=== PATIENT | male | born 1960 | race African-American/Black ===

== ENCOUNTER 2016-06-02 13:11 | Outpatient (CLI) | payer MEDICARE, MEDICAID ==
[2015-04-06 18:59] VITALS: BP 152/73
[2016-06-02 14:42] LABS: APPEARANCE,URINE Clear (CLEAR); COLOR,URINE Yellow (YELLOW); OCCULT BLOOD,URINE Trace-intact (NEGATIVE); PH URINE 5.5 (5.0 - 8.0)
[2016-06-02 14:48] LABS: BASOPHILS % 0.1 (0.0-1.5); EOSINOPHILS % 0.4 % (0.0-6.8); LYMPHOCYTES # 0.9 # k/uL (0.6-4.0); MEAN CORPUSCULAR HEMOGLOBIN 29.7 pg (28.0-34.0); MONOCYTES # 0.5 # k/uL (0.0-0.9); MONOCYTES % 7.5 % (0.0-11.0); NEUTROPHILS # 4.8 # k/uL (1.4-7.7)
[2016-06-02 14:57] LABS: AMORPHOUS SEDIMENT,UR FEW (NEGATIVE)
[2016-06-02 15:12] LABS: eGFR (African) 32; eGFR (Non-African) 26
[2016-06-02 23:01] LABS: MAGNESIUM 1.8 mg/dL (1.6-2.6)
[2016-06-03 03:32] LABS: PROTEIN mg/dL 200 mg/dL
[2016-06-07 02:07] LABS: BK copy/mL <390 cpy/mL
== END 2016-06-02 13:12 ==
LOC: NEPHRO 13:11
PROVIDERS: ATTEND Internal Medicine Nephrology
DX: E11.22 Type 2 diabetes mellitus with diabetic chronic kidney disease (principal); N18.9 Chronic kidney disease, unspecified; Z94.0 Kidney transplant status
CPT/HCPCS: 36415; 80053; 81002; 82570; 83036; 83735; 84100; 84156; 85025; 87497; 87799; G0463

== ENCOUNTER 2016-10-15 08:14 | Outpatient (CLI) | payer MEDICARE ==
[2015-04-06 18:59] VITALS: BP 152/73
[2016-10-15 08:56] LABS: BASOPHILS % 0.2 (0.0-1.5); EOSINOPHILS % 0.4 % (0.0-6.8); MEAN CORPUSCULAR HEMOGLOBIN 31.9 pg (28.0-34.0); MONOCYTES % 4.9 % (0.0-11.0); NEUTROPHILS # 4.8 # k/uL (1.4-7.7)
[2016-10-15 09:18] LABS: eGFR (African) 38; eGFR (Non-African) 31
== END 2016-10-15 08:15 ==
LOC: LAB 08:14
PROVIDERS: ATTEND Internal Medicine Nephrology
DX: N18.9 Chronic kidney disease, unspecified (principal); Z94.0 Kidney transplant status
CPT/HCPCS: 36415; 80053; 80197; 83036; 83735; 83970; 84100; 85025

== ENCOUNTER 2016-10-20 13:05 | Outpatient (CLI) | payer MEDICARE ==
[2015-04-06 18:59] VITALS: BP 152/73
== END 2016-10-20 13:06 ==
LOC: NEPHRO 13:05
PROVIDERS: ATTEND Internal Medicine Nephrology
DX: Z94.0 Kidney transplant status (principal); E11.9 Type 2 diabetes mellitus without complications; I10 Essential (primary) hypertension; N18.3 Chronic kidney disease, stage 3 (moderate)
CPT/HCPCS: G0463

== ENCOUNTER 2017-04-06 13:36 | Outpatient (CLI) | payer MEDICARE, OTHER ==
[2015-04-06 18:59] VITALS: BP 152/73
== END 2017-04-06 13:38 ==
LOC: NEPHRO 13:36
PROVIDERS: ATTEND Internal Medicine Nephrology
DX: Z94.0 Kidney transplant status (principal); E11.9 Type 2 diabetes mellitus without complications; I10 Essential (primary) hypertension
CPT/HCPCS: G0463

== ENCOUNTER 2017-04-06 14:17 | Outpatient (CLI) | payer MEDICARE, OTHER ==
[2015-04-06 18:59] VITALS: BP 152/73
[2017-04-06 15:21] LABS: BASOPHILS % 0.1 (0.0-1.5); EOSINOPHILS % 0.3 % (0.0-6.8); MEAN CORPUSCULAR HEMOGLOBIN 31.6 pg (28.0-34.0); MEAN CORPUSCULAR VOLUME 92.4 fl (80.0-100.0); MONOCYTES % 7.1 % (0.0-11.0); NEUTROPHILS # 5.6 # k/uL (1.4-7.7)
[2017-04-06 15:22] LABS: APPEARANCE,URINE Clear (CLEAR); COLOR,URINE Yellow (YELLOW); OCCULT BLOOD,URINE Trace-intact (NEGATIVE); UROBILINOGEN URINE 0.2 Eu (0.2-1.0)
[2017-04-06 15:51] LABS: eGFR (African) 42; eGFR (Non-African) 35
[2017-04-06 16:09] LABS: AMORPHOUS SEDIMENT,UR FEW (NEGATIVE)
[2017-04-06 23:51] LABS: MAGNESIUM 1.8 mg/dL (1.6-2.6)
[2017-04-07 01:41] LABS: PROTEIN mg/dL 91 mg/dL
[2017-04-09 13:53] LABS: BK copy/mL <390 cpy/mL
== END 2017-04-06 14:18 ==
LOC: LAB 14:17
PROVIDERS: ATTEND Internal Medicine Nephrology
DX: Z94.0 Kidney transplant status (principal); E11.9 Type 2 diabetes mellitus without complications; I10 Essential (primary) hypertension
CPT/HCPCS: 36415; 80053; 81002; 82570; 83036; 83735; 84100; 84156; 85025; 87799

== ENCOUNTER 2017-08-28 11:25 | Emergency (ER) | payer MEDICARE ==
[2017-08-28] MEDS ORDERED: CloNIDine HCL 0.1 MG TABLET PO ONE ×2 (11:43→11:44)
--- NOTE | 2017-08-28 12:06 | ED Physician Documentation ---
General Adult - HISTORIAN Historian: patient - HPI Stated Complaint: High Blood Pressure Chief Complaint: General Adult Additional Information: Says his BP this morning was 179/101, so he came to the ER. Out of clonidine for several days, but stays it is ready for pickup at [facility]. [facility] says they don't have script and never have. Medical records are not helpful in this regard. Says he feels fine. - ROS CONST: no problems - PAST HX Past History: hypertension, other (CVA) Allergies/Adverse Reactions: Allergies Allergy/AdvReac Type Severity Reaction Status Date / Time No Known Drug Allergies Allergy Verified 04/06/15 17:42 Home Medications: Ambulatory Orders Medication Instructions Recorded Hydrocodone/Acetaminophen 1 each PO Q4 PRN u2 04/11/15 [Hydrocodon-Acetaminophen 5-325] Carvedilol [Coreg] 25 mg PO QID 08/28/17 CloNIDine HCL [Catapress] 0.1 mg PO BID #60 tablet 08/28/17 CloNIDine HCL [Catapress] 0.1 mg PO TID 08/28/17 Gabapentin [Gabapentin] 100 mg PO TID 08/28/17 Insulin Aspart [Novolog Flexpen] 4 units SQ TID 08/28/17 Insulin Glargine,Hum.rec.anlog 6 units SQ HS 08/28/17 [Lantus Solostar] Latanoprost [Xalatan] 1 drop OP 08/28/17 Omeprazole [Omeprazole] 20 mg PO BID 08/28/17 Pen Needle, Diabetic [Ultra-Fine 08/28/17 Short Pen Needle] Simvastatin [Simvastatin] 20 mg PO HS 08/28/17 amLODIPine BESYLATE [Norvasc] 10 mg PO 0900 08/28/17 tiZANidine HCL [Zanaflex] 4 mg PO Q6H PRN 08/28/17 - SOCIAL HX Smoking History: non-smoker - FAMILY HX Family History: No - VITAL SIGNS Vital Signs: Vital Signs Temp Pulse Resp BP Pulse Ox 97.9 F 86 18 173/88 99 08/28/17 11:25 08/28/17 11:25 08/28/17 11:25 08/28/17 11:25 08/28/17 11:25 - REVIEWED ASSESSMENTS Nursing Assessment Reviewed: Yes Vitals Reviewed: Yes ED Results Lab/Radiology - Orders Orders: ED Orders Category Date Time Status CloNIDine HCL [Catapress] Med 08/28/17 11:43 Discontinued 0.1 mg PO .STK-MED ONE CloNIDine HCL [Catapress] Med 08/28/17 11:44 Discontinued 0.1 mg PO NOW ONE General Adult Physical Exam - PHYSICAL EXAM GENERAL APPEARANCE: in WC EENT: eye inspection normal, other (L mouth lower, talks from right side of mouth, poor salivary control on lefy) NECK: normal inspection RESPIRATORY: no resp distress, breath sounds normal CVS: reg rate & rhythm, heart sounds normal BACK: normal inspection SKIN: warm/dry, normal color EXTREMITIES: no evidence of injury NEURO: cognition normal Discharge Clincal Impression: Hypertension Qualifiers: Hypertension type: unspecified Qualified Code(s): I10 - Essential (primary) hypertension Prescriptions: CloNIDine HCL [Catapress] 0.1 mg PO BID #60 tablet Referrals: Paulie Quintana MD [Primary Care Provider] - 2 Days Condition: Good Disposition: 01 HOME, SELF-CARE Decision to Admit: NO Decision Time: 12:10
[2017-08-28 12:32] VITALS: BP 166/67
== END 2017-08-28 12:30 | disposition home or self-care (01) ==
LOC: ED 11:25
DX: I10 Essential (primary) hypertension (principal); Z76.0 Encounter for issue of repeat prescription
CPT/HCPCS: 99283

== ENCOUNTER 2017-09-09 13:40 | Outpatient (CLI) | payer MEDICARE ==
[2017-09-09 13:45] LABS: eGFR (African) 44; eGFR (Non-African) 37
== END 2017-09-09 13:42 ==
LOC: LABRHC 13:40
PROVIDERS: ATTEND Family Medicine
DX: E11.9 Type 2 diabetes mellitus without complications (principal); I10 Essential (primary) hypertension
CPT/HCPCS: 80053

== ENCOUNTER 2017-10-05 14:05 | Outpatient (CLI) | payer MEDICARE, OTHER ==
[2017-10-05 14:30] LABS: BASOPHILS % 0.2 (0.0-1.5); EOSINOPHILS % 0.3 % (0.0-6.8); MEAN CORPUSCULAR HEMOGLOBIN 31.8 pg (28.0-34.0); MEAN CORPUSCULAR VOLUME 94.7 fl (80.0-100.0); MONOCYTES % 6.5 % (0.0-11.0); NEUTROPHILS # 4.7 # k/uL (1.4-7.7)
[2017-10-05 14:38] LABS: APPEARANCE,URINE CLEAR (CLEAR); COLOR,URINE YELLOW (YELLOW); OCCULT BLOOD,URINE TRACE-LYSED (NEGATIVE); UROBILINOGEN URINE 0.2 Eu (0.2-1.0)
[2017-10-05 14:50] LABS: eGFR (African) 42; eGFR (Non-African) 35
[2017-10-05 22:01] LABS: PROTEIN mg/dL 59 mg/dL
[2017-10-09 22:41] LABS: BK copy/mL <390 cpy/mL
== END 2017-10-05 15:07 ==
LOC: LAB 14:05
PROVIDERS: ATTEND Internal Medicine Nephrology
DX: Z94.0 Kidney transplant status (principal); E11.9 Type 2 diabetes mellitus without complications; I10 Essential (primary) hypertension
CPT/HCPCS: 36415; 80053; 80197; 81002; 82570; 83036; 83735; 83970; 84100; 84156; 84443; 85025; 87497; 87799; G0463

== ENCOUNTER 2018-01-05 09:22 | Outpatient (CLI) | payer MEDICARE, OTHER ==
[2018-01-05 10:34] LABS: eGFR (Non-African) 39
== END 2018-01-05 09:24 ==
LOC: LAB 09:22
PROVIDERS: ATTEND Family Medicine
DX: E11.9 Type 2 diabetes mellitus without complications (principal); Z23 Encounter for immunization
CPT/HCPCS: 36415; 80053; 80061; 83036

== ENCOUNTER 2018-04-06 07:52 | Outpatient (CLI) | payer MEDICARE, OTHER ==
[2018-04-06 08:38] LABS: eGFR (Non-African) 35
[2018-04-06 08:44] LABS: MEAN CORPUSCULAR HEMOGLOBIN 30.7 pg (28.0-34.0)
[2018-04-06 08:45] LABS: BASOPHILS % 0.2 (0.0-1.5); EOSINOPHILS % 1.2 % (0.0-6.8); MONOCYTES % 5.6 % (0.0-11.0); MONOCYTES % 6 % (0-11); NEUTROPHILS # 6.1 # k/uL (1.4-7.7); SEGMENTED NEUTROPHILS % 81 % (39-79)
[2018-04-06 08:56] LABS: APPEARANCE,URINE CLEAR (CLEAR); COLOR,URINE YELLOW (YELLOW); OCCULT BLOOD,URINE TRACE-LYSED (NEGATIVE); UROBILINOGEN URINE 0.2 Eu (0.2-1.0)
[2018-04-07 10:27] LABS: PROTEIN mg/dL 52 mg/dL
== END 2018-04-06 07:53 ==
LOC: LAB 07:52
PROVIDERS: ATTEND Internal Medicine Nephrology
DX: E11.9 Type 2 diabetes mellitus without complications (principal); I10 Essential (primary) hypertension
CPT/HCPCS: 36415; 80053; 81002; 82570; 83036; 83735; 84100; 84156; 85025

== ENCOUNTER 2018-04-12 13:09 | Outpatient (CLI) | payer MEDICARE, OTHER | END 2018-04-12 13:11 | LOC: NEPHRO 13:09 | PROVIDERS: ATTEND Internal Medicine Nephrology | DX: Z94.0 Kidney transplant status (principal); N25.81 Secondary hyperparathyroidism of renal origin; D63.8 Anemia in other chronic diseases classified elsewhere; Z79.899 Other long term (current) drug therapy; Z51.81 Encounter for therapeutic drug level monitoring | CPT/HCPCS: G0463 ==

== ENCOUNTER 2018-05-24 08:49 | Outpatient (CLI) | payer MEDICARE, OTHER ==
--- NOTE | 2018-05-24 09:32 | Diagnostic Imaging Report ---
JADA MEEHAN [facility] [address] [facility].[address] [address] Report Submission Date: May 24, 2018 9:16:09 AM BOARD OF DIRECTORS Patient Study Name: JDAA GAINES Date: May 24, 2018 8:59:42 AM BOARD OF DIRECTORS Modality Type: DX Gender: M Description: WRIST 3 VIEWS OR MORE : 58 Institution: [facility] Physician: JADA MEEHAN Examination: Plain film left wrist History: LATERAL LT WRIST PAIN WHEN PULLING HIMSELF UP. NO PREVIOUS INJURY OR SURGERY ON WRIST. Comparison exams: None available Findings: 3 views of the left wrist demonstrate normal cortical margins. No fracture. No dislocation. Mild subchondral cysts. Vascular calcifications. Impression: No acute appearing osseous abnormality. If suspect soft tissue abnormality/injury consider obtaining MRI to further evaluate. Electronically signed on May 24, 2018 9:16:09 AM BOARD OF DIRECTORS by: Mumtaz GODOY
== END 2018-05-24 08:50 ==
LOC: RAD 08:49
PROVIDERS: ATTEND Family Medicine
DX: M25.532 Pain in left wrist (principal)
CPT/HCPCS: 73110

== ENCOUNTER 2018-06-29 02:30 | Emergency (ER) | payer MEDICARE, OTHER ==
--- NOTE | 2018-06-29 02:46 | ED Physician Documentation ---
General Adult - HISTORIAN Historian: patient - HPI Stated Complaint: urinary frequency x 2 days Chief Complaint: Male Urogenital Problems Onset: hours (8) Timing: still present Severity: moderate Further Comments: yes (He states early this am she started noticing he was frequently urinating and there was an episode he felt "it just came out before I could go" He denies any nasuea. No pain. No fever.) Last known Well Code/Unknown Code: Unknown - ROS CONST: no problems GI/: problems urinating. denies: vomiting, nausea, diarrhea MS/SKIN/LYMPH: none NEURO/PSYCH: denies: headache - PAST HX Past History: hypertension Other History: diabetes Type 2 Immunizations: UTD Allergies/Adverse Reactions: Allergies Allergy/AdvReac Type Severity Reaction Status Date / Time No Known Drug Allergies Allergy Verified 06/29/18 02:51 Home Medications: Ambulatory Orders Medication Instructions Recorded Hydrocodone/Acetaminophen 1 each PO Q4 PRN u2 04/11/15 [Hydrocodon-Acetaminophen 5-325] Carvedilol [Coreg] 25 mg PO QID 08/28/17 CloNIDine HCL [Catapress] 0.1 mg PO TID 08/28/17 Gabapentin 100 mg PO TID 08/28/17 Latanoprost [Xalatan] 1 drop OP 08/28/17 Omeprazole 20 mg PO BID 08/28/17 Simvastatin 20 mg PO HS 08/28/17 amLODIPine BESYLATE [Norvasc] 10 mg PO 0900 08/28/17 tiZANidine HCL [Zanaflex] 4 mg PO Q6H PRN 08/28/17 - SOCIAL HX Smoking History: non-smoker Alcohol Use: none Drug Use: none - FAMILY HX Family History: No - VITAL SIGNS Vital Signs: Vital Signs Temp Pulse Resp BP Pulse Ox 166/67 08/28/17 12:30 - REVIEWED ASSESSMENTS Nursing Assessment Reviewed: Yes Vitals Reviewed: Yes Progress - Progress Progress: 0342: discussed results and plan- he is agreeable DG General Adult Physical Exam - PHYSICAL EXAM GENERAL APPEARANCE: no distress EENT: eye inspection normal, no signs of dehydration NECK: normal inspection RESPIRATORY: no resp distress, chest non-tender, breath sounds normal CVS: reg rate & rhythm, heart sounds normal ABDOMEN: soft, normal bowel sounds, no distension BACK: no CVA tenderness SKIN: warm/dry, normal color EXTREMITIES: non-tender, normal range of motion, no evidence of injury NEURO: oriented X3 Discharge Clincal Impression: UTI (urinary tract infection) Qualifiers: Urinary tract infection type: site unspecified Hematuria presence: with hematuria Qualified Code(s): N39.0 - Urinary tract infection, site not specified Referrals: Paulie Quintana MD [Primary Care Provider] - 2 Days Comments: 1. Keflex 500 mg take 1 by mouth every 12 hours x 10 days 2. Increase fluids 3. Follow up with PCP in 2 days for re check 4. Return to ER for any increasing concerns Condition: Stable Disposition: 01 HOME, SELF-CARE Decision to Admit: NO Date of Decison to Admit: 06/29/18 Decision Time: 03:42
[2018-06-29] MEDS ORDERED: 0.9 % SODIUM CHLORIDE 500 ML IV ONE (03:11)
[2018-06-29] MEDS: 0.9 % SODIUM CHLORIDE 500 ML IV STA (03:22)
[2018-06-29] MEDS: CEPHALEXIN 250 MG CAPSULE PO ONE (03:45)
[2018-06-29 04:08] VITALS: BP 185/92
[2018-06-29 07:19] LABS: BASOPHILS % 0.6 (0.0-1.5); EOSINOPHILS % 1.4 % (0.0-6.8); MEAN CORPUSCULAR HEMOGLOBIN 31.4 pg (28.0-34.0); MONOCYTES % 7.7 % (0.0-11.0); NEUTROPHILS # 10.9 # k/uL (1.4-7.7)
[2018-06-29 10:39] LABS: APPEARANCE,URINE CLOUDY (CLEAR); COLOR,URINE YELLOW (YELLOW); OCCULT BLOOD,URINE 3+ (NEGATIVE); UROBILINOGEN URINE 0.2 Eu (0.2-1.0)
== END 2018-06-29 04:02 | disposition home or self-care (01) ==
LOC: ED 02:30
DX: N39.0 Urinary tract infection, site not specified (principal)
CPT/HCPCS: 36415; 80053; 81002; 85025; 99283; J7060; S1016

== ENCOUNTER 2018-07-29 11:48 | Inpatient (IN) | payer MEDICARE, OTHER ==
[2018-07-29 12:48] VITALS: BMI 27.4
[2018-07-29] MEDS ORDERED: ENOXAPARIN SODIUM 40 MG/0.4 ML DISP.SYRIN SQ SCH (13:00)
[2018-07-29] MEDS ORDERED: cefTRIAXone SODIUM 1 GM INJ ONE (13:02)
[2018-07-29] MEDS ORDERED: 0.9 % SODIUM CHLORIDE 50 ML IV ONE (13:03)
[2018-07-29] MEDS ORDERED: ENOXAPARIN SODIUM 40 MG/0.4 ML DISP.SYRIN SQ ONE (13:03)
[2018-07-29 13:15] LABS: SEGMENTED NEUTROPHILS % 75 % (39-79)
[2018-07-29 13:16] LABS: HYPOCHROMASIA 2+ (NEGATIVE)
[2018-07-29] MEDS: SALINE FLUSH 10 ML DISP.SYRIN IV SCH ×2 (13:34→21:29)
[2018-07-29] MEDS: cefTRIAXone SODIUM 1 GM in 0.9 % SODIUM CHLORIDE(MINIBAG+ 50 ML IV SCH (13:35)
[2018-07-29] MEDS: IPRATROPIUM/ALBUTEROL SULFATE 3 ML AMPUL.NEB NEB SCH ×3 (13:58→21:37)
[2018-07-29] MEDS: AZITHROMYCIN 500 MG in 0.9 % SODIUM CHLORIDE 250 ML IV SCH (15:25)
[2018-07-29] MEDS: INSULIN REGULAR, HUMAN 100 UNIT/ML 10ML VIAL SQ SCH ×2 (16:51→21:32)
--- NOTE | 2018-07-29 17:06 | History and Physical Report ---
History of Present Illnes - History of Present Illness Reason for Visit: Shortness of Breath/Fever/Low SAO2 History of Present Illness: Patient is a 57-year-old male that was seen in the clinic for shortness of breath and fever. He states that he was seen in the clinic 2 days ago for reevaluation of a wart- that night he started to not feel well- developed a cough and chills. 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 Patient was found to be pale, fever of 100.4, oxygen saturation of 88%, and tachypnea of 28. He states he just does not feel well. He has a significant history including; stroke, CKD with kidney transplant, DM, and HTN. He will be admitted; will order labs including blood cultures, CXR, IV antibiotics, and scheduled breathing treatments. 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 (Dysarthria) Renal/: Chronic renal failure Endocrine: Diabetes - Past Surgical History Past Surgical History: Arthroscopy (right shoulder), Other (Kidney transplant, Hx of AV fistula placement, hx of port a cath, hx of dialysis shunt) - Past Social History Smoke: Quit Alcohol: None Drugs: None Lives: Friends Domestic Violence: Negative - Health Maintenance Health Maintenance: Cholesterol, Influenza Vaccine Influenza Vaccine: Current for this Influenza Season Pneumonia Vaccine: No Resuscitation Status: Resusciation Status Resuscitation Status Full Code Review of Systems - Review of Systems Constitutional: Fever, Chills, Weakness Eyes: negative: conjunctivae inflammation, eyelid inflammation ENT: negative: Ear Pain, Nose Discharge, Throat Pain Respiratory: Cough, Shortness of Breath Cardiovascular: Edema Gastrointestinal: negative: Nausea, Vomiting, Abdominal Pain Genitourinary: Frequency Musculoskeletal: negative: Back Pain Skin: negative: Rash Neurological: Weakness - Medications/Allergies Allergies/Adverse Reactions: Allergies Allergy/AdvReac Type Severity Reaction Status Date / Time No Known Drug Allergies Allergy Verified 06/29/18 02:51 Home Medications: Home Medications Blood Sugar Diagnostic [Advanced Glucose Test Strips] 1 each [facility] 07/29/18 Cholecalciferol (Vitamin D3) [Vitamin D3] 2,000 unit PO DAILY 07/29/18 Docusate Sodium [Colace] 100 mg PO BID 07/29/18 Mycophenolate Sodium [Mycophenolic Acid] 360 mg PO DAILY 07/29/18 Prednisone 5 mg PO DAILY 07/29/18 Tacrolimus 1 mg PO HS 07/29/18 Tacrolimus 2 mg PO 0900 07/29/18 Current Inpatient Medications: Current Inpatient Medications Albuterol/Ipratropium (Duoneb) 3 ml NEB Q4 [facility] Last Admin: 07/29/18 13:58 Dose: 3 ml Enoxaparin Sodium (Lovenox) 40 mg SQ DAILY [facility] Stop: 08/12/18 12:59 Last Admin: 07/29/18 13:34 Dose: 40 mg Ceftriaxone Sodium 1 gm/ (Sodium Chloride) 50 mls @ 100 mls/hr IV DAILY [facility] Last Admin: 07/29/18 13:35 Dose: 100 mls/hr Azithromycin 500 mg/ Sodium (Chloride) 250 mls @ 125 mls/hr IV Q24H [facility] Stop: 08/08/18 14:59 Last Admin: 07/29/18 15:25 Dose: 125 mls/hr Insulin Human Regular (Humulin R) [facility]; Protocol Miscellaneous (Chem Sticks) 1 each CHEMQID [facility] Sodium Chloride (Normal Saline Flush) 3 ml IV BID [facility] Last Admin: 07/29/18 13:34 Dose: 3 ml Exam - Exam Vital Signs: Vital Signs (72 hours) 07/29/18 07/29/18 07/29/18 12:15 12:43 12:44 Temperature 99.4 F 99.4 F 99.4 F Pulse Rate 79 Pulse Rate [ Apical] Pulse Rate [ 80 Pulse ox] Pulse Rate [ 80 80 Right] Respiratory 26 H 26 H 26 H Rate Blood Pressure 145/62 145/62 145/62 [Right Arm] O2 Sat by Pulse 98 98 98 Oximetry 07/29/18 14:00 Temperature Pulse Rate 82 Pulse Rate [ 82 Apical] Pulse Rate [ 80 Pulse ox] Pulse Rate [ 80 Right] Respiratory 20 Rate Blood Pressure [Right Arm] O2 Sat by Pulse Oximetry General: Alert, Oriented to Person, Oriented to Place, Oriented to Time, Cooperative, Moderate distress HEENT: Atraumatic, Nose Mucous membr. moist/[place] Neck: Normal Range of Motion Carotids: No bruit Lungs: Rhonchi Cardiovascular: Regular rate, Normal S1, Normal S2 Peripheral Edema: generalized Abdomen: Normal bowel sounds, Soft, No tenderness Integumentary: Warm, Dry, Pale Extremities: Normal pulses Neurological: No: Normal speech (dyarthria) Psych/Mental Status: Mental status NL, Mood NL, Appropriate Affect - Laboratory Results Laboratory Results: Laboratory Results 07/29/18 07/29/18 12:35 12:35 WBC 10.60 RBC 3.15 L Hgb 9.9 L Hct 28.9 L MCV 92.0 MCH 31.3 MCHC 34.1 RDW 14.1 Plt Count 187 Seg Neutrophils % 75 Band Neutrophils % 7 Lymphocytes % 5 L Monocytes % 13 H Hypochromasia 2+ H Poikilocytosis 2+ H Sodium 133 L Potassium 4.5 Chloride 104 Carbon Dioxide 20 L BUN 56 H Creatinine 3.98 H Estimated Creat Clear 20 Est GFR ( Amer) 20 L Est GFR (Non-Af Amer) 17 L Glucose 313 H Calcium 8.8 Total Bilirubin 0.9 AST 46 ALT 17 Alkaline Phosphatase 90 Total Protein 6.7 Albumin 3.4 L Assessment/Plan - Assessment/Plan (1) Pneumonia Status: Acute Current Visit: Yes Qualifiers: Pneumonia type: due to unspecified organism Laterality: bilateral Lung location: lower lobe of lung Qualified Code(s): J18.1 - Lobar pneumonia, unspecified organism Plan: Blood cultures collected, started on 2 IV antibiotics, scheduled HFN tx's, IS (2) Type 2 diabetes mellitus Status: Acute Current Visit: Yes Qualifiers: Diabetes mellitus decal maker insulin use: with decal maker use Diabetes benjamin ajs complication status: with hyperglycemia Qualified Code(s): E11.65 - Type 2 diabetes mellitus with hyperglycemia; 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
[2018-07-29 18:57] LABS: APPEARANCE,URINE CLEAR (CLEAR); COLOR,URINE YELLOW (YELLOW); OCCULT BLOOD,URINE 2+ (NEGATIVE); PH URINE 5.5 (5.0 - 8.0)
--- NOTE | 2018-07-29 19:09 | Diagnostic Imaging Report ---
STEPHEN CATALAN [facility] [address] [facility] [address] [address] Report Submission Date: Jul 29, 2018 1:46:44 PM CDT Patient Study Name: JADA GAINES Date: Jul 29, 2018 1:07:09 PM CDT Modality Type: DX Gender: M Description: CHEST 2VIEW : 58 Institution: [facility] Physician: STEPHEN CATALAN EXAMINATION: CHEST 2VIEW HISTORY: CXR, SOA COMPARISON: None FINDINGS: The patient is rotated to the left. On the lateral image, there are airspace opacities in a lower lobe, likely on the left. There is no pleural effusion or pneumothorax. The heart size is at the upper limit of normal for AP technique given rotation. The visible bony thorax is intact. Right shoulder hemiarthroplasty has been performed. IMPRESSION: Lower lobe airspace opacities, concerning for pneumonia in the appropriate clinical setting. Electronically signed on Jul 29, 2018 1:46:44 PM CDT by: Alberto GODOY
[2018-07-30] MEDS: IPRATROPIUM/ALBUTEROL SULFATE 3 ML AMPUL.NEB NEB SCH ×6 (03:09→20:50)
[2018-07-30] MEDS ORDERED: LORazepam 1 MG TABLET PO ONE ×2 (04:07→04:15)
[2018-07-30] MEDS ORDERED: ACETAMINOPHEN 325 MG TABLET ONE ×4 (04:13→22:24)
[2018-07-30] MEDS: ACETAMINOPHEN 325 MG TABLET PO PRN ×4 (04:21→23:03)
[2018-07-30] MEDS ORDERED: 0.9 % SODIUM CHLORIDE 1,000 ML IV ONE ×3 (05:55→20:29)
[2018-07-30] MEDS: 0.9 % SODIUM CHLORIDE 1,000 ML IV SCH ×3 (06:31→19:02)
[2018-07-30] MEDS: INSULIN REGULAR, HUMAN 100 UNIT/ML 10ML VIAL SQ SCH ×4 (07:38→20:54)
--- NOTE | 2018-07-30 08:01 | Inpatient Progress Note ---
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 Patient is alert and oriented- mild distress- able to eat his breakfast- able to speak full sentences- still having low grade fevers- requiring supplemental oxygen- patient still receiving IVF d/t dehydration- nursing is aware to monitor closely for failure due to kidney history. General: Chills, Fatigue HEENT: Sinus Congestion. Denies: Head Aches Pulmonary: Dyspnea, Cough Cardiovascular: Edema (trace to lower extremities- patient states he always has a little). Denies: Chest Pain, Palpitations Gastrointestinal: Denies: Nausea, Vomiting, Abdominal Pain Genitourinary: Denies: Dysuria Musculoskeletal: Denies: Back Pain Neurological: Weakness, Change in Speech (dysarthria) Objective - Exam Vitals and I&O: Vital Signs Temp 99.2 F 07/30/18 05:57 Pulse 90 07/30/18 05:57 Resp 18 07/30/18 05:57 BP 139/79 07/30/18 05:57 Pulse Ox 95 07/30/18 05:57 Intake & Output 07/29/18 07/29/18 07/30/18 11:59 23:59 11:59 Intake Total 130 600 Output Total 100 1525 Balance 30 -925 Weight 72.575 kg Intake: IV 10 right forarm 10 Oral 120 600 Output: Urine 100 1525 Other: # Voids 2 # Bowel Movements 0 1 General: Alert, Oriented to Person, Oriented to Place, Oriented to Time, Cooperative, Mild distress HEENT: Atraumatic, PERRLA, Nose Mucous membr. moist/[place] Neck: Supple, No JVD, +2 carotid pulse wo bruit Lungs: Rhonchi Cardiovascular: Normal S1, Normal S2 Abdomen: Normal bowel sounds, Soft Extremities: Normal pulses Skin: Warm, Dry, Pale Neurological: Normal speech (appropriate for patient), Normal tone, Sensation intact Psych/Mental Status: Mental status NL, Mood NL, Appropriate Affect, Intact Judgment - Results Results: Laboratory Results WBC 10.60 K/ul (4.00-12.00) 07/29/18 12:35 RBC 3.15 M/ul (3.90-5.20) L 07/29/18 12:35 Hgb 9.9 g/dL (12.0-18.0) L 07/29/18 12:35 Hct 28.9 % (37.0-53.0) L 07/29/18 12:35 MCV 92.0 fl (80.0-100.0) 07/29/18 12:35 MCH 31.3 pg (28.0-34.0) 07/29/18 12:35 MCHC 34.1 g/dL (30.0-36.0) 07/29/18 12:35 RDW 14.1 % (11.3-14.3) 07/29/18 12:35 Plt Count 187 K/mm3 (130-400) 07/29/18 12:35 Seg Neutrophils % 75 % (39-79) 07/29/18 12:35 Band Neutrophils % 7 % (0-12) 07/29/18 12:35 Lymphocytes % 5 % (16-50) L 07/29/18 12:35 Monocytes % 13 % (0-11) H 07/29/18 12:35 Hypochromasia 2+ (NEGATIVE) H 07/29/18 12:35 Poikilocytosis 2+ (NEGATIVE) H 07/29/18 12:35 Sodium 133 mmol/L (137-145) L 07/29/18 12:35 Potassium 4.5 mmol/L (3.5-5.1) 07/29/18 12:35 Chloride 104 mmol/L (98-107) 07/29/18 12:35 Carbon Dioxide 20 mmol/L (22-30) L 07/29/18 12:35 BUN 56 mg/dL (9-20) H 07/29/18 12:35 Creatinine 3.98 mg/dL (0.66-1.25) H 07/29/18 12:35 Estimated Creat Clear 20 07/29/18 12:35 Est GFR ( Amer) 20 (60-) L 07/29/18 12:35 Est GFR (Non-Af Amer) 17 (60-) L 07/29/18 12:35 Glucose 313 mg/dL (74-106) H 07/29/18 12:35 Calcium 8.8 mg/dL (8.4-10.2) 07/29/18 12:35 Total Bilirubin 0.9 mg/dL (0.2-1.3) 07/29/18 12:35 AST 46 U/L (15-46) 07/29/18 12:35 ALT 17 U/L (0-50) 07/29/18 12:35 Alkaline Phosphatase 90 U/L (38-126) 07/29/18 12:35 Total Protein 6.7 g/dL (6.3-8.2) 07/29/18 12:35 Albumin 3.4 g/dL (3.5-5.0) L 07/29/18 12:35 Urine Color Yellow (YELLOW) 07/29/18 18:45 Urine Appearance Clear (CLEAR) 07/29/18 18:45 Urine pH 5.5 (5.0 - 8.0) 07/29/18 18:45 Ur Specific [place] 1.015 (1.010-1.030) 07/29/18 18:45 Urine Protein 2+ mg/dL (NEGATIVE) H 07/29/18 18:45 Urine Ketones Negative mg/dL (NEGATIVE) 07/29/18 18:45 Urine Occult Blood 2+ (NEGATIVE) H 07/29/18 18:45 Urine Nitrite Negative (NEGATIVE) 07/29/18 18:45 Urine Bilirubin Negative (NEGATIVE) 07/29/18 18:45 Urine Urobilinogen 1.0 Eu (0.2-1.0) 07/29/18 18:45 Ur Leukocyte Esterase 1+ (NEGATIVE) H 07/29/18 18:45 Urine WBC 25-50 (0-5 HPF) H 07/29/18 18:45 Urine Glucose 1+ mg/dL (NEGATIVE) H 07/29/18 18:45 Influenza Type A Ag Negative (NEGATIVE) 07/29/18 17:15 Influenza Type B Ag Negative (NEGATIVE) 07/29/18 17:15 Assessment/Plan - Assessment/Plan (1) Pneumonia Status: Acute Qualifiers: Pneumonia type: due to unspecified organism Laterality: bilateral Lung location: lower lobe of lung Qualified Code(s): J18.1 - Lobar pneumonia, unspecified organism Plan: Will continue to monitor for blood cultures, IV antibiotics x 2, HFN every 4 hours, Incentive spirometry (2) Type 2 diabetes mellitus Status: Acute Qualifiers: Diabetes mellitus senior living insulin use: with oil heaterman use Diabetes mellitus complication status: with hyperglycemia Qualified Code(s): E11.65 - Type 2 diabetes mellitus with hyperglycemia; 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
[2018-07-30] MEDS ORDERED: CARVEDILOL 12.5 MG TABLET PO ONE ×3 (09:01→16:54)
[2018-07-30] MEDS ORDERED: cloNIDine HCL 0.1 MG TABLET PO ONE ×3 (09:04→16:53)
[2018-07-30] MEDS ORDERED: DOCUSATE SODIUM 100 MG CAPSULE ONE ×2 (09:04→20:28)
[2018-07-30] MEDS ORDERED: GABAPENTIN 100 MG CAPSULE ONE ×3 (09:04→16:53)
[2018-07-30] MEDS ORDERED: amLODIPine BESYLATE 5 MG TABLET ONE (09:06)
[2018-07-30] MEDS: CARVEDILOL 12.5 MG TABLET PO SCH ×2 (09:12→17:03)
[2018-07-30] MEDS: DOCUSATE SODIUM 100 MG CAPSULE PO SCH ×2 (09:13→21:02)
[2018-07-30] MEDS: cloNIDine HCL 0.1 MG TABLET PO SCH ×3 (09:13→17:02)
[2018-07-30] MEDS: GABAPENTIN 100 MG CAPSULE PO SCH ×3 (09:14→17:03)
[2018-07-30] MEDS: amLODIPine BESYLATE 5 MG TABLET PO SCH (09:14)
[2018-07-30] MEDS: PATIENT OWN MED 1 EACH EACH PO SCH ×2 (09:15→21:18)
[2018-07-30] MEDS: cefTRIAXone SODIUM 1 GM in 0.9 % SODIUM CHLORIDE(MINIBAG+ 50 ML IV SCH (09:16)
[2018-07-30] MEDS: SALINE FLUSH 10 ML DISP.SYRIN IV SCH ×2 (09:53→20:51)
[2018-07-30] MEDS: AZITHROMYCIN 500 MG in 0.9 % SODIUM CHLORIDE 250 ML IV SCH (14:36)
[2018-07-30] MEDS ORDERED: PANTOPRAZOLE SODIUM 40 MG TABLET.DR ONE (18:08)
[2018-07-30] MEDS: PANTOPRAZOLE SODIUM 40 MG TABLET.DR PO SCH (18:11)
[2018-07-30] MEDS ORDERED: traZODone HCL 50 MG TABLET ONE (20:29)
[2018-07-30] MEDS ORDERED: SIMVASTATIN 20 MG TABLET ONE (20:29)
[2018-07-30] MEDS ORDERED: LATANOPROST 0.005% OPTH DROP ONE (20:29)
--- NOTE | 2018-07-30 20:42 | Diagnostic Imaging Report ---
STEPHEN CATALAN [facility] [address] [facility] [address] [address] Report Submission Date: Jul 30, 2018 7:57:43 AM CDT Patient Study Name: JADA GAINES Date: Jul 30, 2018 6:43:26 AM CDT Modality Type: DX Gender: M Description: CHEST 2VIEW : 58 Institution: [facility] Physician: STEPHEN CATALAN PA and lateral chest Clinical history: Pneumonia. Findings: Examination of the chest in PA and lateral views with comparison to examination from the previous day demonstrates slight improved aeration right lung base with persistent left perihilar infiltrate. Cardiovascular and mediastinal silhouettes are stable. Possibility of underlying mass cannot be excluded. CT of the chest is recommended for better evaluation. Impression: 1. Left perihilar infiltrate or mass with postobstructive atelectasis. Recommend CT for better evaluation. 2. Aortic atherosclerosis and left ventricular prominence. Electronically signed on Jul 30, 2018 7:57:43 AM CDT by: Ector GODOY
[2018-07-30] MEDS: INSULIN GLARGINE,HUM.REC.ANLOG 100 UNIT/ML PEN.INJCTR SQ SCH (20:58)
[2018-07-30] MEDS: traZODone HCL 50 MG TABLET PO SCH (21:02)
[2018-07-30] MEDS: SIMVASTATIN 20 MG TABLET PO SCH (21:02)
[2018-07-30] MEDS: LATANOPROST 0.005% OPTH DROP OU SCH (21:03)
[2018-07-31] MEDS: IPRATROPIUM/ALBUTEROL SULFATE 3 ML AMPUL.NEB NEB SCH ×6 (00:27→21:00)
[2018-07-31] MEDS: 0.9 % SODIUM CHLORIDE 1,000 ML IV SCH ×2 (00:31→08:52)
[2018-07-31] MEDS: ACETAMINOPHEN 325 MG TABLET PO PRN ×2 (05:42→16:02)
[2018-07-31] MEDS ORDERED: ACETAMINOPHEN 325 MG TABLET ONE ×2 (05:43→15:50)
[2018-07-31] MEDS ORDERED: PANTOPRAZOLE SODIUM 40 MG TABLET.DR ONE ×2 (05:44→17:07)
[2018-07-31] MEDS: PANTOPRAZOLE SODIUM 40 MG TABLET.DR PO SCH ×2 (05:44→17:10)
[2018-07-31 06:23] LABS: HYPOCHROMASIA 2+ (NEGATIVE); PLT EST. EST. AGREES W/PLT CT
[2018-07-31 06:24] LABS: SEGMENTED NEUTROPHILS % 64 % (39-79)
--- NOTE | 2018-07-31 07:29 | Inpatient Progress Note ---
Subjective - Required Recertification Statement I anticipate X number of days because-include discharge plan: 2 - Review of Systems Events since last encounter: Patient appears to be resting comfortably in bed this morning- states he only received one breathing treatment last night and feels that he needs one- states that he requested and never got one this morning. Explained that I would get with the day shift nurse caring for him and get a breathing treatment. He states that he is starting to cough but is still not able to cough anything up at this time. He states that he is hungry and ready for breakfast- he continues to use Incentive spirometry- still running low grade temps. He would like to see Dr. Quintana Wednesday for follow up. Explained that I would touch base with Dr. quintana and have him come see him Wednesday. He is in agreement. General: Chills HEENT: Denies: Head Aches, Sinus Congestion Pulmonary: Dyspnea, Cough Cardiovascular: Edema (generalized). Denies: Chest Pain, Palpitations Gastrointestinal: Denies: Nausea, Vomiting, Abdominal Pain Genitourinary: Denies: Dysuria Musculoskeletal: Denies: Back Pain Neurological: Denies: Weakness Objective - Exam Vitals and I&O: Vital Signs Temp 101.0 F H 07/31/18 05:41 Pulse 93 H 07/31/18 05:41 Resp 20 07/31/18 05:41 BP 162/76 07/31/18 05:41 Pulse Ox 92 07/31/18 05:41 Intake & Output 07/30/18 07/30/18 07/31/18 11:59 23:59 11:59 Intake Total 800 2280 900 Output Total 1525 700 500 Balance -725 1580 400 Intake: IV 1800 600 right hand 1800 600 Oral 800 480 300 Output: Urine 1525 700 500 Other: # Voids 2 1 # Bowel Movements 1 0 General: Alert, Oriented to Person, Oriented to Place, Oriented to Time, Cooperative, Mild distress HEENT: Atraumatic, PERRLA, Mouth Mucous membr. moist/[place], Nose Mucous membr. moist/[place] Neck: Supple, No JVD, +2 carotid pulse wo bruit Lungs: Speaks full Sentences, Rhonchi Cardiovascular: Normal S1, Normal S2 Abdomen: Normal bowel sounds, Soft, No tenderness Extremities: Normal pulses Skin: Warm, Dry, Pale Neurological: Normal speech (appropriate for patient), Normal tone, Sensation intact Psych/Mental Status: Mental status NL, Mood NL, Appropriate Affect - Results Results: Laboratory Results WBC 10.70 K/ul (4.00-12.00) 07/31/18 05:20 RBC 3.12 M/ul (3.90-5.20) L 07/31/18 05:20 Hgb 9.7 g/dL (12.0-18.0) L 07/31/18 05:20 Hct 28.6 % (37.0-53.0) L 07/31/18 05:20 MCV 92.0 fl (80.0-100.0) 07/31/18 05:20 MCH 31.1 pg (28.0-34.0) 07/31/18 05:20 MCHC 33.9 g/dL (30.0-36.0) 07/31/18 05:20 RDW 14.3 % (11.3-14.3) 07/31/18 05:20 Plt Count 201 K/mm3 (130-400) 07/31/18 05:20 Seg Neutrophils % 64 % (39-79) 07/31/18 05:20 Band Neutrophils % 3 % (0-12) 07/31/18 05:20 Lymphocytes % 10 % (16-50) L 07/31/18 05:20 Monocytes % 23 % (0-11) H 07/31/18 05:20 Platelet Estimate Est. agrees w/plt ct 07/31/18 05:20 Hypochromasia 2+ (NEGATIVE) H 07/31/18 05:20 Poikilocytosis 2+ (NEGATIVE) H 07/29/18 12:35 Sodium 137 mmol/L (137-145) 07/31/18 05:20 Potassium 4.4 mmol/L (3.5-5.1) 07/31/18 05:20 Chloride 111 mmol/L (98-107) H 07/31/18 05:20 Carbon Dioxide 20 mmol/L (22-30) L 07/31/18 05:20 BUN 41 mg/dL (9-20) H 07/31/18 05:20 Creatinine 3.05 mg/dL (0.66-1.25) H 07/31/18 05:20 Estimated Creat Clear 27 07/31/18 05:20 Est GFR ( Amer) 27 (60-) L 07/31/18 05:20 Est GFR (Non-Af Amer) 23 (60-) L 07/31/18 05:20 Glucose 179 mg/dL (74-106) H 07/31/18 05:20 Calcium 8.6 mg/dL (8.4-10.2) 07/31/18 05:20 Total Bilirubin 0.8 mg/dL (0.2-1.3) 07/31/18 05:20 AST 28 U/L (15-46) 07/31/18 05:20 ALT 20 U/L (0-50) 07/31/18 05:20 Alkaline Phosphatase 87 U/L (38-126) 07/31/18 05:20 Total Protein 6.6 g/dL (6.3-8.2) 07/31/18 05:20 Albumin 3.2 g/dL (3.5-5.0) L 07/31/18 05:20 Urine Color Yellow (YELLOW) 07/29/18 18:45 Urine Appearance Clear (CLEAR) 07/29/18 18:45 Urine pH 5.5 (5.0 - 8.0) 07/29/18 18:45 Ur Specific [place] 1.015 (1.010-1.030) 07/29/18 18:45 Urine Protein 2+ mg/dL (NEGATIVE) H 07/29/18 18:45 Urine Ketones Negative mg/dL (NEGATIVE) 07/29/18 18:45 Urine Occult Blood 2+ (NEGATIVE) H 07/29/18 18:45 Urine Nitrite Negative (NEGATIVE) 07/29/18 18:45 Urine Bilirubin Negative (NEGATIVE) 07/29/18 18:45 Urine Urobilinogen 1.0 Eu (0.2-1.0) 07/29/18 18:45 Ur Leukocyte Esterase 1+ (NEGATIVE) H 07/29/18 18:45 Urine WBC 25-50 (0-5 HPF) H 07/29/18 18:45 Urine Glucose 1+ mg/dL (NEGATIVE) H 07/29/18 18:45 Influenza Type A Ag Negative (NEGATIVE) 07/29/18 17:15 Influenza Type B Ag Negative (NEGATIVE) 07/29/18 17:15 Assessment/Plan - Assessment/Plan (1) Pneumonia Status: Acute Qualifiers: Pneumonia type: due to unspecified organism Laterality: bilateral Lung location: lower lobe of lung Qualified Code(s): J18.1 - Lobar pneumonia, unspecified organism Plan: Will continue with antibiotics x 2, HFN treatments every 4 hr, incentive spirometry, (2) Type 2 diabetes mellitus Status: Acute Qualifiers: Diabetes mellitus terminal system operator insulin use: with terminal system operator use Diabetes mellitus complication status: with hyperglycemia Qualified Code(s): E11.65 - Type 2 diabetes mellitus with hyperglycemia; Z79.4 - intermodal dispatcher (current) use of insulin Plan: Continue on SSI (3) Chronic kidney disease Status: Acute Plan: Continue to monitor closely- "slow" IV hydration due to dehydration- monitor closely for CHF (4) Hypertension Status: Acute Qualifiers: Hypertension type: unspecified Qualified Code(s): I10 - Essential (primary) hypertension Plan: Stable on home meds
[2018-07-31] MEDS ORDERED: BISACODYL 10 MG SUPP.RECT RC ONE ×2 (07:33→07:34)
[2018-07-31] MEDS: INSULIN REGULAR, HUMAN 100 UNIT/ML 10ML VIAL SQ SCH ×4 (07:50→21:29)
[2018-07-31] MEDS ORDERED: CARVEDILOL 12.5 MG TABLET PO ONE ×2 (08:26→17:08)
[2018-07-31] MEDS ORDERED: cloNIDine HCL 0.1 MG TABLET PO ONE ×3 (08:27→17:08)
[2018-07-31] MEDS ORDERED: DOCUSATE SODIUM 100 MG CAPSULE ONE ×2 (08:27→21:16)
[2018-07-31] MEDS ORDERED: amLODIPine BESYLATE 5 MG TABLET ONE (08:28)
[2018-07-31] MEDS ORDERED: GABAPENTIN 100 MG CAPSULE ONE ×3 (08:28→17:08)
[2018-07-31] MEDS: CARVEDILOL 12.5 MG TABLET PO SCH ×2 (08:37→17:11)
[2018-07-31] MEDS: cloNIDine HCL 0.1 MG TABLET PO SCH ×3 (08:38→17:11)
[2018-07-31] MEDS: DOCUSATE SODIUM 100 MG CAPSULE PO SCH ×2 (08:38→21:21)
[2018-07-31] MEDS: amLODIPine BESYLATE 5 MG TABLET PO SCH (08:39)
[2018-07-31] MEDS: PATIENT OWN MED 1 EACH EACH PO SCH ×2 (08:39→21:25)
[2018-07-31] MEDS ORDERED: ENOXAPARIN SODIUM 40 MG/0.4 ML DISP.SYRIN SQ ONE (08:39)
[2018-07-31] MEDS: cefTRIAXone SODIUM 1 GM in 0.9 % SODIUM CHLORIDE(MINIBAG+ 50 ML IV SCH ×2 (08:43→10:00)
[2018-07-31] MEDS: SALINE FLUSH 10 ML DISP.SYRIN IV SCH ×3 (08:45→21:00)
[2018-07-31] MEDS ORDERED: 0.9 % SODIUM CHLORIDE 1,000 ML IV ONE ×2 (08:55→21:26)
[2018-07-31] MEDS: GABAPENTIN 100 MG CAPSULE PO SCH ×3 (08:55→17:11)
[2018-07-31] MEDS: AZITHROMYCIN 500 MG in 0.9 % SODIUM CHLORIDE 250 ML IV SCH (15:08)
[2018-07-31 17:52] VITALS: BP 122/91
[2018-07-31] MEDS ORDERED: traZODone HCL 50 MG TABLET ONE (21:16)
[2018-07-31] MEDS ORDERED: SIMVASTATIN 20 MG TABLET ONE (21:17)
[2018-07-31] MEDS: traZODone HCL 50 MG TABLET PO SCH (21:21)
[2018-07-31] MEDS: SIMVASTATIN 20 MG TABLET PO SCH (21:21)
[2018-07-31] MEDS: LATANOPROST 0.005% OPTH DROP OU SCH (21:24)
[2018-07-31] MEDS ORDERED: FUROSEMIDE 40 MG/4 ML VIAL ONE (21:34)
[2018-07-31] MEDS: INSULIN GLARGINE,HUM.REC.ANLOG 100 UNIT/ML PEN.INJCTR SQ SCH (21:35)
[2018-07-31] MEDS ORDERED: FUROSEMIDE 40 MG/4 ML VIAL IVP ONE (21:43)
--- NOTE | 2018-07-31 21:46 | Inpatient Progress Note ---
Subjective - Required Recertification Statement I anticipate X number of days because-include discharge plan: 0 - Review of Systems Events since last encounter: Received call at 21:22 from overnight houseperson that patient condition worsening- patient is tachypneic, tachycardic, anxious, edema of 4+ with JVD. 21:45 Arrival to patient room- pt is very short of breath- unable to lie flat- edema +4, rales heard through lung [facility]. Labs, Xray, EKG ordered and 40mg of Lasix given. Spoke with patient and he will go to the Home. 22:[address] Chopra, Hospitalist, accepted patient to the Home General: Fatigue HEENT: Denies: Head Aches, Sinus Congestion Pulmonary: Dyspnea, Cough Cardiovascular: Paroxysmal Noc. Dyspnea, Edema Gastrointestinal: Denies: Nausea, Vomiting Genitourinary: Denies: Dysuria Musculoskeletal: Denies: Back Pain Objective - Exam Vitals and I&O: Vital Signs Temp 98.9 F 07/31/18 17:51 Pulse 89 07/31/18 17:51 Resp 22 07/31/18 17:51 BP 122/91 07/31/18 17:51 Pulse Ox 95 07/31/18 17:51 Intake & Output 07/30/18 07/31/18 07/31/18 23:59 11:59 23:59 Intake Total 2280 1020 1370 Output Total 700 500 325 Balance 8430 011 8274 Intake: IV 1800 600 950 right hand 1800 600 950 Oral 480 420 420 Output: Urine 700 500 325 Other: Voiding Method Bedside Commode # Voids 1 # Bowel Movements 0 2 General: Alert, Oriented to Person, Oriented to Place, Cooperative, Moderate distress HEENT: PERRLA, Mouth Mucous membr. moist/[place], Nose Mucous membr. moist/[place] Neck: Other (+ JVD) Lungs: Respiratory Distress, Rales Cardiovascular: Normal S1, Normal S2 Abdomen: Normal bowel sounds Extremities: Other (> 3+ pitting edema to lower extremities) Skin: Dry, Pale Neurological: Sensation intact Psych/Mental Status: Mental status NL - Results Results: Laboratory Results WBC 10.70 K/ul (4.00-12.00) 07/31/18 05:20 RBC 3.12 M/ul (3.90-5.20) L 07/31/18 05:20 Hgb 9.7 g/dL (12.0-18.0) L 07/31/18 05:20 Hct 28.6 % (37.0-53.0) L 07/31/18 05:20 MCV 92.0 fl (80.0-100.0) 07/31/18 05:20 MCH 31.1 pg (28.0-34.0) 07/31/18 05:20 MCHC 33.9 g/dL (30.0-36.0) 07/31/18 05:20 RDW 14.3 % (11.3-14.3) 07/31/18 05:20 Plt Count 201 K/mm3 (130-400) 07/31/18 05:20 Seg Neutrophils % 64 % (39-79) 07/31/18 05:20 Band Neutrophils % 3 % (0-12) 07/31/18 05:20 Lymphocytes % 10 % (16-50) L 07/31/18 05:20 Monocytes % 23 % (0-11) H 07/31/18 05:20 Platelet Estimate Est. agrees w/plt ct 07/31/18 05:20 Hypochromasia 2+ (NEGATIVE) H 07/31/18 05:20 Poikilocytosis 2+ (NEGATIVE) H 07/29/18 12:35 Sodium 137 mmol/L (137-145) 07/31/18 05:20 Potassium 4.4 mmol/L (3.5-5.1) 07/31/18 05:20 Chloride 111 mmol/L (98-107) H 07/31/18 05:20 Carbon Dioxide 20 mmol/L (22-30) L 07/31/18 05:20 BUN 41 mg/dL (9-20) H 07/31/18 05:20 Creatinine 3.05 mg/dL (0.66-1.25) H 07/31/18 05:20 Estimated Creat Clear 27 07/31/18 05:20 Est GFR ( Amer) 27 (60-) L 07/31/18 05:20 Est GFR (Non-Af Amer) 23 (60-) L 07/31/18 05:20 Glucose 179 mg/dL (74-106) H 07/31/18 05:20 Calcium 8.6 mg/dL (8.4-10.2) 07/31/18 05:20 Total Bilirubin 0.8 mg/dL (0.2-1.3) 07/31/18 05:20 AST 28 U/L (15-46) 07/31/18 05:20 ALT 20 U/L (0-50) 07/31/18 05:20 Alkaline Phosphatase 87 U/L (38-126) 07/31/18 05:20 Total Protein 6.6 g/dL (6.3-8.2) 07/31/18 05:20 Albumin 3.2 g/dL (3.5-5.0) L 07/31/18 05:20 Urine Color Yellow (YELLOW) 07/29/18 18:45 Urine Appearance Clear (CLEAR) 07/29/18 18:45 Urine pH 5.5 (5.0 - 8.0) 07/29/18 18:45 Ur Specific [place] 1.015 (1.010-1.030) 07/29/18 18:45 Urine Protein 2+ mg/dL (NEGATIVE) H 07/29/18 18:45 Urine Ketones Negative mg/dL (NEGATIVE) 07/29/18 18:45 Urine Occult Blood 2+ (NEGATIVE) H 07/29/18 18:45 Urine Nitrite Negative (NEGATIVE) 07/29/18 18:45 Urine Bilirubin Negative (NEGATIVE) 07/29/18 18:45 Urine Urobilinogen 1.0 Eu (0.2-1.0) 07/29/18 18:45 Ur Leukocyte Esterase 1+ (NEGATIVE) H 07/29/18 18:45 Urine WBC 25-50 (0-5 HPF) H 07/29/18 18:45 Urine Glucose 1+ mg/dL (NEGATIVE) H 07/29/18 18:45 Influenza Type A Ag Negative (NEGATIVE) 07/29/18 17:15 Influenza Type B Ag Negative (NEGATIVE) 07/29/18 17:15 Assessment/Plan - Assessment/Plan (1) Pneumonia Status: Acute Current Visit: Yes Qualifiers: Pneumonia type: due to unspecified organism Laterality: bilateral Lung location: lower lobe of lung Qualified Code(s): J18.1 - Lobar pneumonia, unspecified organism Plan: Transferring to [facility] (2) Type 2 diabetes mellitus Status: Acute Current Visit: Yes Qualifiers: Diabetes mellitus watermaster insulin use: with watermaster use Diabetes mellitus complication status: with hyperglycemia Qualified Code(s): E11.65 - Type 2 diabetes mellitus with hyperglycemia; Z79.4 - penitentiary (current) use of insulin (3) Chronic kidney disease Status: Acute Current Visit: Yes (4) Hypertension Status: Acute Current Visit: No Qualifiers: Hypertension type: unspecified Qualified Code(s): I10 - Essential (primary) hypertension
[2018-07-31 22:23] LABS: SEGMENTED NEUTROPHILS % 76 % (39-79)
--- NOTE | 2018-08-01 05:24 | Diagnostic Imaging Report ---
STEPHEN CATALAN [facility] [id number] [facility] [id number] Report Submission Date: Jul 31, 2018 10:02:49 PM CDT Patient Study Name: JADA GAINES Date: Jul 31, 2018 9:45:52 PM CDT Modality Type: DX Gender: M Description: CHEST 1VIEW : 58 Institution: [facility] Physician: SETPHEN ACTALAN Chest, one view History: Shortness of breath Findings: Comparison is made to exam dated 07/30/2018. The heart size is normal. Diffuse left-sided infiltrate has increased slightly in the left upper lobe and left lower lobe since the prior exam. No large pleural effusion or pneumothorax. Right shoulder arthroplasty is in place. Impression: 1. Diffuse left-sided infiltrate, increased. Electronically signed on Jul 31, 2018 10:02:49 PM CDT by: Rodrigo GODOY
[2018-08-01] MEDS ORDERED: FUROSEMIDE 20 MG/2 ML VIAL IVP SCH (07:00)
--- NOTE | 2018-08-25 07:28 | Discharge Summary ---
Discharge Summary - Discharge [place] Admission Date: 07/29/18 Discharge Date: 07/31/18 Discharge To: Other (Transferred to [facility]) History of Present Illness: Patient is a 57-year-old male that was seen in the clinic for shortness of breath and fever. He stated that he was seen in the clinic 2 days ago for reevaluation of a wart- that night he started to not feel well- developed a cough and chills. He had called the clinic early childhood education worker and stated he was short of breath- had refused ambulance- was seen right away in clinic. Patient was found to be pale, fever of 100.4, oxygen saturation of 88%, and tachypnea of 28. He states he just does not feel well. He has a significant history including; stroke, CKD with kidney transplant, DM, and HTN. He was admitted and orders placed for labs including blood cultures, CXR, IV antibiotics, and scheduled breathing treatments. Home Medications: Ambulatory Orders Medication Instructions Recorded Carvedilol [Coreg] 50 mg PO BID 08/28/17 Gabapentin 100 mg PO TID 08/28/17 Latanoprost [Xalatan] 1 drop OP HS 08/28/17 Omeprazole 20 mg PO BID 08/28/17 Simvastatin 20 mg PO DAILY 08/28/17 amLODIPine BESYLATE [Norvasc] 10 mg PO 0900 08/28/17 cloNIDine HCL [Catapress] 0.1 mg PO TID 08/28/17 Blood Sugar Diagnostic [Advanced 1 each [facility] 07/29/18 Glucose Test Strips] Cholecalciferol (Vitamin D3) 2,000 unit PO DAILY 07/29/18 [Vitamin D3] Docusate Sodium [Colace] 100 mg PO BID 07/29/18 Mycophenolate Sodium [Mycophenolic 360 mg PO DAILY 07/29/18 Acid] Prednisone 5 mg PO DAILY 07/29/18 Tacrolimus 1 mg PO HS 07/29/18 Tacrolimus 2 mg PO 0900 07/29/18 Allergies/Adverse Reactions: Allergies Allergy/AdvReac Type Severity Reaction Status Date / Time No Known Drug Allergies Allergy Verified 06/29/18 02:51 Discharge Summary: Received call at 21:22 from warehouse manager that patient condition worsening- patient is tachypneic, tachycardic, anxious, edema of 4+ with JVD. 21:45 Arrival to patient room- pt is very short of breath- unable to lie flat- edema +4, rales heard through lung [facility]. Labs, Xray, EKG ordered and 40mg of Lasix given. Spoke with patient and he will go to the [place]. 22:[address] Chopra, Hospitalist, accepted patient to the [facility] Course: labs, IV antibiotics, scheduled breathing treatments, oxygen, IVF, IV lasix - Final Diagnosis (1) Pneumonia Problems: Worsening-transferred Right or Left: Right (2) Type 2 diabetes mellitus Problems: stable Right or Left: Right (3) Chronic kidney disease Problems: Worsening- transferred Right or Left: Right
== END 2018-07-31 23:00 | disposition short-term general hospital (02) | DRG 194 ==
LOC: SOUTH 11:48
PROVIDERS: ADMIT Nurse Practitioner Family; ATTEND Nurse Practitioner Family
DX: J18.1 Lobar pneumonia, unspecified organism (principal); T86.19 Other complication of kidney transplant; I25.10 Atherosclerotic heart disease of native coronary artery without angina pectoris; E78.5 Hyperlipidemia, unspecified; I12.9 Hypertensive chronic kidney disease with stage 1 through stage 4 chronic kidney disease, or unspecified chronic kidney disease; E11.22 Type 2 diabetes mellitus with diabetic chronic kidney disease; N18.9 Chronic kidney disease, unspecified; E86.0 Dehydration; E11.65 Type 2 diabetes mellitus with hyperglycemia; R47.1 Dysarthria and anarthria; Z86.73 Personal history of transient ischemic attack (TIA), and cerebral infarction without residual deficits; Z87.891 Personal history of nicotine dependence; Z79.52 Long term (current) use of systemic steroids; Z79.899 Other long term (current) drug therapy; Z79.4 Long term (current) use of insulin; Y83.0 Surgical operation with transplant of whole organ as the cause of abnormal reaction of the patient, or of later complication, without mention of misadventure at the time of the procedure
CPT/HCPCS: 36415; 71045; 71046; 80053; 81002; 83880; 84484; 85025; 87040; 87400; 93005; J0456; J0696; J1650; J1815; J1940; J7030; J7050; 99221; S1016